=== PATIENT | female | born 1995 | race Caucasian/White ===

== ENCOUNTER 2022-09-05 16:23 | Emergency (ER) | payer OTHER ==
[~2022-09-05] VITALS: Ht 157.5 cm; Wt 78.0 kg
[2022-09-05 16:25] VITALS: BP 142/93
[2022-09-05] MEDS ORDERED: ACET-683 PO (16:32)
== END 2022-09-05 18:13 | disposition home or self-care (01) ==
LOC: M ED 16:23
DX: S90.32XA Contusion of left foot, initial encounter (principal); W51.XXXA Accidental striking against or bumped into by another person, initial encounter; F12.10 Cannabis abuse, uncomplicated; Y92.009 Unspecified place in unspecified non-institutional (private) residence as the place of occurrence of the external cause; Y93.41 Activity, dancing; Z79.1 Long term (current) use of non-steroidal anti-inflammatories (NSAID)

== ENCOUNTER 2022-09-20 22:19 | Emergency (ER) | payer OTHER ==
[~2022-09-20] VITALS: Ht 165.1 cm; Wt 79.6 kg
[~2022-09-20 22:19] MED LIST: ACET-683 PO
[2022-09-20 22:20] VITALS: BP 133/83
== END 2022-09-21 03:03 | disposition left against medical advice (07) ==
LOC: M ED 22:19
DX: S69.92XA Unspecified injury of left wrist, hand and finger(s), initial encounter (principal); X58.XXXA Exposure to other specified factors, initial encounter; Y92.89 Other specified places as the place of occurrence of the external cause; Y93.89 Activity, other specified; Y99.8 Other external cause status; Z53.21 Procedure and treatment not carried out due to patient leaving prior to being seen by health care provider

== ENCOUNTER 2023-08-12 06:00 | Day surgery (SDC) | payer OTHER ==
[~2023-08-12] VITALS: Ht 157.5 cm; Wt 73.0 kg
[~2023-08-12 06:00] MED LIST changes: +PARO10TA3 PO; +VENTAER INH; +XANA0.25 PO
[2023-08-12] MEDS ORDERED: LR 1,000 ML IV SCH (06:55)
[2023-08-12] MEDS ORDERED: LIDOCAINE 2% 100MG/5ML SDV (FOR ANES.) As Ordered ONE (07:14)
[2023-08-12] MEDS ORDERED: ONDANSETRON 4MG 2ML VIAL As Ordered ONE (07:14)
[2023-08-12] MEDS ORDERED: propofoL 200 MG/20 ML VIAL As Ordered ONE (07:14)
[2023-08-12] MEDS ORDERED: ROCURONIUM BROMIDE 50MG/5ML VIAL As Ordered ONE (07:14)
[2023-08-12] MEDS ORDERED: KETOROLAC 60MG 2ML VIAL As Ordered ONE (07:15)
[2023-08-12] MEDS ORDERED: MIDAZOLAM INJ 2MG/2ML VIAL As Ordered ONE (07:15)
[2023-08-12] MEDS ORDERED: SUGAMMADEX SODIUM 500 MG/5 ML VIAL (BRIDION) As Ordered ONE (07:15)
[2023-08-12] MEDS ORDERED: fentaNYL 100 MCG/2 ML INJECTION As Ordered ONE (07:15)
[2023-08-12] MEDS ORDERED: ACETAMINOPHEN 1000MG 100ML IV BAG As Ordered ONE (07:26)
[2023-08-12] MEDS ORDERED: dexmedeTOMIDine (4MCG/ML)200MCG/50ML BTL (PRECEDEX) As Ordered ONE (07:26)
[2023-08-12 07:42] LABS: HEMATOCRIT 40.5 % (36.0-47.0); HEMOGLOBIN 13.5 g/dl (12.0-15.5)
[2023-08-12 08:06] LABS: FREE T4 1.08 NG/DL (0.89-1.76); THYROID STIMULATING HORMONE 2.945 uIU/ML (0.55-4.78)
[2023-08-12] MEDS ORDERED: ONDANSETRON 4MG 2ML VIAL IV PRN (08:45)
[2023-08-12] MEDS: fentaNYL 100 MCG/2 ML INJECTION IV PRN (08:52)
[2023-08-12] MEDS: oxyCODONE 5MG TAB PO PRN (09:11)
[2023-08-12] MEDS ORDERED: oxyCODONE 5MG TAB PO PRN ×2 (09:30→11:20)
[2023-08-12] MEDS ORDERED: fentaNYL 100 MCG/2 ML INJECTION IV PRN (11:15)
[2023-08-12 11:24] VITALS: BP 100/56; TEMP 98.2; O2SAT 98
[2023-08-12] MEDS: ONDANSETRON 4MG 2ML VIAL IV PRN (11:26)
== END 2023-08-12 11:52 | disposition home or self-care (01) ==
LOC: M SDC 06:00
PROVIDERS: ATTEND Obstetrics & Gynecology
DX: Z30.2 Encounter for sterilization (principal); N92.1 Excessive and frequent menstruation with irregular cycle; E06.3 Autoimmune thyroiditis; J45.909 Unspecified asthma, uncomplicated; F43.10 Post-traumatic stress disorder, unspecified; F31.9 Bipolar disorder, unspecified; F41.9 Anxiety disorder, unspecified; F60.3 Borderline personality disorder; Z79.899 Other long term (current) drug therapy; Z87.891 Personal history of nicotine dependence
CPT/HCPCS: 36415; 58301; 58661; 81025; 84439; 84443; 85014; 85018; 88302; J0131; J0665; J1100; J1885; J2250; J2405; J3010